=== PATIENT | female | born 2000 | race Caucasian/White ===

== ENCOUNTER 2023-08-26 19:55 | Emergency (ER) | payer OTHER ==
[~2023-08-26] VITALS: Ht 157.5 cm; Wt 49.9 kg
[2023-08-26 19:59] VITALS: BP 122/81; PULSE 108; RESP 20; TEMP 98.7; O2SAT 99
[2023-08-26 20:24] VITALS: BP 122/81; PULSE 108; RESP 20; TEMP 98.7; O2SAT 99
== END 2023-08-26 20:33 ==
LOC: MED 19:55
DX: S09.90XA Unspecified injury of head, initial encounter (principal); W50.0XXA Accidental hit or strike by another person, initial encounter; Y93.89 Activity, other specified; Y92.89 Other specified places as the place of occurrence of the external cause; Y99.8 Other external cause status
CPT/HCPCS: 99283